=== PATIENT | female | born 1990 | race African-American/Black ===

== ENCOUNTER 2018-12-03 01:23 | Emergency (ER) | payer SELFPAY ==
[2018-12-03] MEDS: LIDOCAINE/MYLANTA 40 ML BTL PO (03:01)
[2018-12-03] MEDS: FAMOTIDINE 20 MG TAB PO (03:01)
[2018-12-03] MEDS: LORAZEPAM 1 MG TAB PO (03:02)
[2018-12-03] MEDS: ONDANSETRON (ODT) 4 MG TAB ODT (03:02)
[2018-12-03] MEDS: ASPIRIN 325 MG TAB PO (03:02)
== END 2018-12-03 03:20 | disposition home or self-care (01) ==
LOC: FTE 01:23
DX: F41.9 Anxiety disorder, unspecified (principal)
CPT/HCPCS: 81025; 93005; 99283-25